=== PATIENT | female | born 1930 | race Caucasian/White ===

== ENCOUNTER 2017-05-10 16:26 | Emergency (ER) | payer MEDICARE ==
[~2017-05-10] VITALS: Ht 160 cm; Wt 51.0 kg
[~2017-05-10 16:26] MED LIST: NORC7.5T PO; NORV10TA OR; OMEP20CA5 PO; PARO40TA PO; TAB-TAB PO; TOPR25TA2 PO
[2017-05-10 16:29] VITALS: BP 144/73; PULSE 78; RESP 18; TEMP 98.3; O2SAT 98
[2017-05-10] MEDS ORDERED: METO25TA3 PO (16:45)
[2017-05-10] MEDS ORDERED: K-TA10TA PO (16:45)
[2017-05-10] MEDS ORDERED: MULTTAB67 PO (16:45)
[2017-05-10] MEDS ORDERED: NEUR300C PO (16:45)
[2017-05-10] MEDS ORDERED: OMEP20TA PO (16:45)
[2017-05-10] MEDS ORDERED: DIAZ5TAB PO (16:45)
[2017-05-10] MEDS ORDERED: ALEN1TAB48 PO (16:45)
[2017-05-10] MEDS ORDERED: AMLO10TA2 PO (16:45)
[2017-05-10] MEDS ORDERED: HYDR-3534 PO (16:45)
[2017-05-10] MEDS ORDERED: PARO40TA2 PO (16:45)
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
[2017-05-10 17:29] LABS: AUTOMATED NEUTROPHIL # 7.4 TH/MM3 (1.8-7.7); BASOPHIL # 0.1 TH/MM3 (0-0.2); EOSINOPHIL # 0.2 TH/MM3 (0-0.4); EOSINOPHIL % 2.4 % (0.0-4.0); HEMATOCRIT 41.7 % (35.0-46.0); HEMO FLAGS DIFF FINAL; LYMPH % 15.1 % (9.0-44.0); LYMPHOCYTE # 1.5 TH/MM3 (1.0-4.8); MEAN CELL VOLUME 89.6 FL (80.0-100.0); MEAN CORPUSCULAR HEMOGLOBIN 29.9 PG (27.0-34.0); MEAN CORPUSCULAR HGB CONC 33.4 % (32.0-36.0); MONO % 5.3 % (0.0-8.0); NEUT % 76.2 % (16.0-70.0); PLATELET COUNT 288 TH/MM3 (150-450); RED BLOOD COUNT 4.65 MIL/MM3 (4.00-5.30); RED CELL DISTRIBUTION WIDTH 13.6 % (11.6-17.2); WHITE BLOOD COUNT 9.7 TH/MM3 (4.0-11.0)
[2017-05-10 17:38] LABS: CHLORIDE 103 MEQ/L (98-107); POTASSIUM 4.3 MEQ/L (3.5-5.1); SODIUM (NA) 137 MEQ/L (136-145)
[2017-05-10 17:41] LABS: ANION GAP 9 MEQ/L (5-15); BICARBONATE 25.3 MEQ/L (21.0-32.0); BLOOD UREA NITROGEN 19 MG/DL (7-18); MAGNESIUM 2.4 MG/DL (1.5-2.5)
[2017-05-10 17:43] LABS: APTT (PATIENT) 20.8 SEC (24.3-30.1); INTERNATIONAL NORMALIZED RATIO 0.9 RATIO; PROTHROMBIN TIME - PATIENT 10.1 SEC (9.8-11.6)
[2017-05-10 17:44] LABS: ALT (GPT) 23 U/L (10-53); AST (GOT) 20 U/L (15-37); GLOMERULAR FILTRATION RATE 39 ML/MIN (>89)
[2017-05-10 17:46] LABS: TOTAL BILIRUBIN ADULT 0.3 MG/DL (0.2-1.0)
[2017-05-10 17:47] LABS: ALKALINE PHOSPHATASE 93 U/L (45-117)
--- NOTE | 2017-05-10 17:56 | RADHPO ---
EXAM DATE/TIME: 05/10/2017 17:34 [facility] COMPARISON: No previous studies available for comparison. INDICATIONS : Weakness and left lower extremity pain. RADIATION DOSE: 62.07 CTDIvol (mGy) MEDICAL HISTORY : Hypertension. Renal disease, end stage. 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 One kidney. SURGICAL HISTORY : Hysterectomy. Spinal fusion. ENCOUNTER: Initial ACUITY: 1 month PAIN SCALE: 3/10 LOCATION: cranial TECHNIQUE: Multiple contiguous axial images were obtained of the head. Using automated exposure control and adj ustment of the mA and/or kV according to patient size, radiation dose was kept as low as reasonably a chievable to obtain optimal diagnostic quality images. FINDINGS: Ventriculostomy shunt is noted with its tip in the frontal horn of the left lateral ventricle. There is mild prominence of the ventricles suggesting central cerebral atrophy versus minimal hydrocephalu s. Clinical correlation is recommended. Moderate periventricular and subcortical white matter small vessel ischemic changes are noted bilaterally. There is no acute hemorrhage, acute infarct, mass eff ect or extra-axial fluid collections. CONCLUSION: 1. Moderate periventricular and subcortical white matter small vessel ischemic changes bilaterally. 2. Mild prominence of the ventricles suggesting central cerebral atrophy versus minimal hydrocephalus . Clinical correlation is recommended. 3. No acute infarct, acute hemorrhage, mass effect or extra-axial fluid collections. Chung Gonzalez MD on May 10, 2017 at 17:50 Board Certified Radiologist. This report was verified electronically.
--- NOTE | 2017-05-10 18:14 | RADHPO ---
EXAM DATE/TIME: 05/10/2017 17:29 [facility] COMPARISON: No previous studies available for comparison. INDICATIONS : Weakness and left lower extremity pain. RADIATION DOSE: 14.58 CTDIvol (mGy) MEDICAL HISTORY : Hypertension. Renal disease, end stage. 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 One kidney. SURGICAL HISTORY : Hysterectomy. Spinal fusion. ENCOUNTER: Initial ACUITY: 1 month PAIN SCALE: 3/10 LOCATION: lumbar TECHNIQUE: Volumetric scanning of the lumbar spine was performed. Multiplanar reconstructions in the sagittal, coronal and oblique axial planes were performed. Using automated exposure control and adjustment of the mA and/or kV according to patient size, radiation dose was kept as low as reasonably achievable t o obtain optimal diagnostic quality images. FINDINGS: There is moderate levoconvex curvature centered around L3/L4. Grade 1 degenerative right lateral and anterolisthesis seen at L2/L3. There is mild loss of height/superior endplate concavity of T12 verteb ral body. Lumbar vertebral bodies have normal height. No acute-appearing fracture or malalignment see n. T12-L1: Bulging of the disc annulus and minimal bilateral facet degenerative changes. No foraminal or spinal stenosis. L1-L2: Bulging of the disc annulus and very mild lateral facet osteoarthritis. No foraminal or spinal stenos is. L2-L3: The disc has severe loss of height. There is sclerosis of the vertebral body endplates and also vacuu m phenomena. There is right lateral and anterolisthesis. A moderate, broad posterior disc protrusion and moderate bilateral facet osteoarthritis noted. There is mild to moderate spinal stenosis and mild right, moderate to severe left foraminal stenosis. L3-L4: The disc has severe loss of height and vacuum phenomena. Chronic sclerosis and cystic changes are see n in the vertebral body endplates. There is a small, broad/diffuse disc osteophyte complex and modera te bilateral facet osteoarthritis. There is mild bilateral foraminal stenosis. L4-L5: Disc has slight loss of height. There is diffuse bulging of the disc annulus and moderate bilateral f acet osteoarthritis. Very mild foraminal stenosis, mainly on the right. L5-S1: Disc height within normal limits. Tiny posterior disc osteophyte complex. Previous posterior fusion. No foraminal or spinal stenosis. CONCLUSION: 1. Multilevel lumbar degenerative changes as detailed above. 2. Moderate spinal stenosis and left greater than right foraminal stenosis at L2/L3. Otherwise genera lly mild stenotic changes. 3. Chronic appearing mild endplate concavity of T12 vertebral body. Lumbar vertebral bodies have norm al height. No acute fracture demonstrated. 4. Grade 1 right lateral and anterolisthesis at L2/L3 that appears degenerative. No acute-appearing m alalignment seen. Lion Morocho MD on May 10, 2017 at 18:06 Board Certified Radiologist. This report was verified electronically.
--- NOTE | 2017-05-10 18:30 | RADHPO ---
EXAM DATE/TIME: 05/10/2017 17:34 [facility] COMPARISON: No previous studies available for comparison. INDICATIONS : Weakness and left lower extremity pain. RADIATION DOSE: 26.51 CTDIvol (mGy) MEDICAL HISTORY : Hypertension. Renal disease, end stage. 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 One kidney. SURGICAL HISTORY : Hysterectomy. Spinal fusion. ENCOUNTER: Initial ACUITY: 1 month PAIN SCALE: 3/10 LOCATION: neck TECHNIQUE: Volumetric scanning of the cervical spine was performed. Multiplanar reconstructions in the sagittal, coronal and oblique axial planes were performed. Using automated exposure control and adjustment o f the mA and/or kV according to patient size, radiation dose was kept as low as reasonably achievable to obtain optimal diagnostic quality images. FINDINGS: Approximate 5 mm of degenerative appearing anterolisthesis seen at C3/C4. There are approximately 3 m m of degenerative appearing anterolisthesis at C7/T1. No fracture or acute appearing malalignment dem onstrated. Patient has had previous discectomy/corpectomy with interbody and anterior instrumentation from C4-C6, appears solidly fused. Moderate to severe anterior and lateral mass degenerative changes are seen at C1/C2 and hypertrophic changes around the dens does appear to cause mild spinal stenosis. However no evidence of cord or med ullary compression. C2-C3: The bony spinal canal is normal in size. No evidence of disc bulge or herniation. The neural forami na are bilaterally patent. C3-C4: Moderate to severe disc space narrowing and severe bilateral facet osteoarthritis. Grade 1 degenerati ve appearing anterolisthesis. There is mild bilateral foraminal stenosis. C4-C5: Fused without evidence of recurrent or residual foraminal or spinal stenosis. C5-C6: Fused without evidence of significant recurrent or residual foraminal or spinal stenosis. C6-C7: Severe disc space narrowing. There is a small, broad posterior disc osteophyte complex and moderate u ncovertebral and facet osteoarthritis. A superimposed soft disc fragment is suspected in the right fo ramen. There is mild spinal stenosis without evidence of cord compression. There is severe right and moderate left foraminal stenosis. C7-T1: The disc has mild loss of height. Grade 1 degenerative appearing anterolisthesis. Moderate bilateral facet osteoarthritis noted. There is mild foraminal stenosis on the right. CONCLUSION: 1. Multilevel surgical and degenerative changes of the cervical spine as above. Most findings appear chronic. An age indeterminate right foraminal disc fragment is seen at C6/C7. 2. No high-grade spinal stenosis at any level. 3. High-grade right foraminal stenosis at C6/C7. Otherwise generally low-grade foraminal encroachment at other levels. 4. Grade 1 degenerative appearing anterolisthesis at C3/C4 and C7/T1. I don't see a fracture or acute appearing malalignment. Lion Morocho MD on May 10, 2017 at 18:21 Board Certified Radiologist. This report was verified electronically.
[2017-05-10 19:10] VITALS: BP 164/63; PULSE 74; RESP 16; O2SAT 98
--- NOTE | 2017-05-10 21:58 | EKG ---
Date Performed: 05/10/2017 Time Performed: 17:12:33 PTAGE: 86 years EKG: Sinus rhythm MODERATE ST DEPRESSION ABNORMAL ECG NO SIGNIFICANT CHANGE FROM PRIOR ELECTROCARDIOGRAM. PREVIOUS TRACING : 02/10/2013 07.07 DOCTOR: [place] [facility] Interpretating Date/Time 05/10/2017 21:57:08
== END 2017-05-10 20:20 | disposition home or self-care (01) ==
LOC: PHED 16:26
DX: R53.1 Weakness (principal); M48.06 Spinal stenosis, lumbar region; R20.0 Anesthesia of skin; I12.0 Hypertensive chronic kidney disease with stage 5 chronic kidney disease or end stage renal disease; N18.6 End stage renal disease; R94.31 Abnormal electrocardiogram [ECG] [EKG]; Z98.2 Presence of cerebrospinal fluid drainage device
CPT/HCPCS: 70450; 72125; 72131; 80053; 83735; 84443; 85025; 85610; 85730; 93005; 99285

== ENCOUNTER 2017-10-16 16:26 | Emergency (ER) | payer MEDICARE ==
[~2017-10-16] VITALS: Ht 162.6 cm; Wt 48.0 kg
[~2017-10-16 16:26] MED LIST changes: +ALEN1TAB48 PO; +AMLO10TA2 PO; +DIAZ5TAB PO; +HYDR-3534 PO; +K-TA10TA PO; +METO25TA3 PO; +MULTTAB67 PO; +NEUR300C PO; -NORC7.5T PO; -NORV10TA OR; -OMEP20CA5 PO; +OMEP20TA93 PO; -PARO40TA PO; +PARO40TA2 PO; -TAB-TAB PO; -TOPR25TA2 PO
[2017-10-16 16:38] VITALS: BP 166/79; PULSE 76; RESP 18; TEMP 97.6; O2SAT 97
[2017-10-16] MEDS ORDERED: HYDR-3580 PO (16:38)
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
[2017-10-16] MEDS ORDERED: TETANUS/DIPHTHERIA TOXOID ADULT 0.5 ML VIAL IM ONE (16:45)
[2017-10-16 17:27] VITALS: BP 164/79; PULSE 72; RESP 18; O2SAT 97
--- NOTE | 2017-10-16 17:40 | RADRPT ---
EXAM DATE/TIME: 10/16/2017 17:13 [facility] COMPARISON: No previous studies available for comparison. INDICATIONS : Fell today, has left side lower chest pains MEDICAL HISTORY : None. SURGICAL HISTORY : Shunt ENCOUNTER: Initial ACUITY: 1 day PAIN SCORE: 7/10 LOCATION: Left lower chest FINDINGS: S. shaped thoracolumbar scoliosis. Shunt catheter tubing overlies the neck, chest, upper abdomen. The re is a fracture identified of the left sixth posterior lateral rib identified. It is nondisplaced. M ildly displaced left seventh rib fracture also seen. CONCLUSION: Left-sided rib fractures. Griffin Brito MD on October 16, 2017 at 17:36 Board Certified Radiologist. This report was verified electronically.
== END 2017-10-16 18:29 | disposition home or self-care (01) ==
LOC: PHED 16:26
DX: S22.42XA Multiple fractures of ribs, left side, initial encounter for closed fracture (principal); S51.812A Laceration without foreign body of left forearm, initial encounter; S80.212A Abrasion, left knee, initial encounter; S80.211A Abrasion, right knee, initial encounter; Z91.81 History of falling; I12.0 Hypertensive chronic kidney disease with stage 5 chronic kidney disease or end stage renal disease; N18.6 End stage renal disease; M81.0 Age-related osteoporosis without current pathological fracture; F32.9 Major depressive disorder, single episode, unspecified; W19.XXXA Unspecified fall, initial encounter; Z79.899 Other long term (current) drug therapy
CPT/HCPCS: 71100; 90471; 90714; 94150